=== PATIENT | female | born 1980 | race African-American/Black ===

== ENCOUNTER 2018-08-09 21:07 | Emergency (ER) | payer SELFPAY ==
[~2018-08-09] VITALS: Ht 154.9 cm; Wt 86.0 kg
[2018-08-09] MEDS ORDERED: ONDANSETRON 4MG ODT PO STA (23:43)
[2018-08-09] MEDS ORDERED: ONDANSETRON 4MG ODT PO ONE (23:45)
[2018-08-10 00:27] LABS: CLARITY URINE CLOUDY (CLEAR); COLOR URINE YELLOW (YELLOW); KETONES URINE NEGATIVE (NEGATIVE); LEUKOCYTE ESTERASE URINE 3+ (NEGATIVE); NITRITE URINE NEGATIVE (NEGATIVE); OCCULT BLOOD URINE NEGATIVE (NEGATIVE); PROTEIN URINE NEGATIVE (NEGATIVE); SPECIFIC GRAVITY URINE 1.023 (1.005-1.030)
[2018-08-10 00:39] LABS: BASOPHILS % 0.6 % (0.0-2.0); HEMATOCRIT. 41.7 % (36.0-48.0); LYMPHOCYTES % 34.8 % (20.0-50.0); MEAN CORPUSCULAR VOLUME 94.9 fL (81.0-99.0); MEAN PLATELET VOLUME 8.8 fl (7.4-10.4); MONOCYTES % 6.3 % (2.0-8.0); NEUTROPHILS % 56.3 % (40.0-76.0); PLATELET 185 x1000/uL (130-400); RED BLOOD CELL COUNT 4.39 mill/uL (4.2-5.4); RED CELL DISTRIBUTION WIDTH 13.8 % (11.6-14.6)
[2018-08-10 00:49] LABS: CHLORIDE 108 mEq/L (98-107)
[2018-08-10] MEDS ORDERED: FAMOTIDINE 20MG TABLET PO ONE (01:15)
[2018-08-10] MEDS ORDERED: MAGNESIUM/ALUMINUM HYDROXIDE/SIMETHICONE 30ML UDC PO ONE (01:30)
[2018-08-10] MEDS ORDERED: VISCOUS LIDOCAINE 2% 15 ML UDC MM PRN (01:30)
[2018-08-10 02:07] VITALS: BP 106/53
== END 2018-08-10 02:10 | disposition home or self-care (01) ==
LOC: ER 22:52
DX: K80.20 Calculus of gallbladder without cholecystitis without obstruction (principal); J02.9 Acute pharyngitis, unspecified; F12.10 Cannabis abuse, uncomplicated; Z98.890 Other specified postprocedural states; Z98.51 Tubal ligation status
CPT/HCPCS: 36415; 76705; 80053; 81003; 81025; 83690; 85025; 99284; Q0162; Z7610

== ENCOUNTER 2018-08-10 10:21 | Emergency (ER) | payer SELFPAY ==
[~2018-08-10] VITALS: Ht 175.3 cm; Wt 86.0 kg
[2018-08-10 11:30] VITALS: BP 110/66
== END 2018-08-10 12:09 | disposition home or self-care (01) ==
LOC: ER 10:21
DX: K80.20 Calculus of gallbladder without cholecystitis without obstruction (principal); N39.0 Urinary tract infection, site not specified; F12.10 Cannabis abuse, uncomplicated; Z98.890 Other specified postprocedural states
CPT/HCPCS: 81025; 99283

== ENCOUNTER 2019-03-05 09:38 | Emergency (ER) | payer MEDICAID ==
[~2019-03-05] VITALS: Ht 154.9 cm; Wt 99.0 kg
[2019-03-05] MEDS ORDERED: IBUPROFEN 600MG TABLET PO ONE (11:45)
[2019-03-05 13:05] VITALS: BP 110/65
== END 2019-03-05 13:10 | disposition home or self-care (01) ==
LOC: ER 09:38
DX: J06.9 Acute upper respiratory infection, unspecified (principal); Z87.442 Personal history of urinary calculi
CPT/HCPCS: 87070; 87430; 87804; 99283